=== PATIENT | male | born 1995 | race Caucasian/White ===

== ENCOUNTER → 2018-10-19 | Outpatient (CLI) | payer BC ==
[2018-10-19 14:04] LABS: CREATININE 1.2 mg/dL (0.7-1.3); GFR 75.7
== END | disposition home or self-care (01) ==
LOC: LAB 13:27
PROVIDERS: ATTEND Orthopaedic Surgery
DX: Z51.81 Encounter for therapeutic drug level monitoring (principal); Z79.899 Other long term (current) drug therapy
CPT/HCPCS: 36415; 82565; 84520